=== PATIENT | female | born 1990 | race Caucasian/White ===

== ENCOUNTER 2019-03-18 18:24 | Emergency (ER) | payer MEDICAID ==
[~2019-03-18] VITALS: Ht 175.3 cm; Wt 80.3 kg
[2019-03-18 18:38] VITALS: BP 128/79
[2019-03-18] MEDS ORDERED: IBUPROFEN 200 MG TABLET ONE (19:57)
[2019-03-18] MEDS ORDERED: IBUPROFEN 800 MG TABLET PO ONE (20:00)
--- NOTE | 2019-03-18 20:02 | NUR ---
Patient/Caregiver given discharge instructions and they have confirmed that they understand the instructions. Patient ambulatory with steady gait.
== END 2019-03-18 20:05 | disposition home or self-care (01) ==
LOC: ED 19:54
DX: J02.9 Acute pharyngitis, unspecified (principal); F17.200 Nicotine dependence, unspecified, uncomplicated
CPT/HCPCS: 87081; 87880; 99283